=== PATIENT | male | born 1950 | race Caucasian/White ===

== ENCOUNTER 2017-05-27 09:51 | Inpatient (IN) | payer MEDICARE, OTHER ==
[2017-05-27 11:05] LABS: Hematocrit 49 % (42-52); Hemoglobin 14.5 g/dl (14.0-18.0); Mean Corpuscular HGB Conc 30 g/dl (31-36); Mean Corpuscular Hemoglobin 23 pg (27-31); Mean Corpuscular Volume 79 fL (80-94); Mean Platelet Volume 9 um3 (7.4-10.4); Platelet Count 211 10^3/ul (150-450); Red Blood Count 6.23 10^6/ul (4.0-5.4); Red Cell Distribution Width 22 % (10.5-15); White Blood Count 8.7 10^3/ul (3.5-10.8)
[2017-05-27 11:09] LABS: EGFR Non-African American 7.8 (>60)
[2017-05-27 11:26] LABS: INR 1.63 (0.77-1.02)
[2017-05-27] MEDS ORDERED: NS 0.9% 1000 ML* 2,000 ML IV ONE (11:27)
[2017-05-27 11:47] LABS: ABS Basophils 0 10^3/ul (0-0.2); ABS Eosinophils 0.1 10^3/ul (0-0.6); ABS Lymphocytes 0.9 10^3/ul (1.0-4.8); ABS Monocytes 0.8 10^3/ul (0-0.8); ABS Neutrophils 6.9 10^3/ul (1.5-7.7); ABS Nucleated RBC 0.1 10^3/ul; Lymphocyte % 10.5 % (25-47)
--- NOTE | 2017-05-27 11:59 | RAD ---
Indication: End-stage renal disease. Weakness. Comparison: No relevant prior exams available on the [facility] PACS for comparison. Technique: Upright AP 1100 hours Report: Mild rightward rotation. 1.3 cm RIGHT perihilar nodular density may represent a prominent blood vessel on end however this is not definitive. The lungs and pleural spaces are otherwise clear. Negative for pneumothorax. Prominent RIGHT paratracheal soft tissue contour likely in part attributable to RIGHT rotation. Cardiomegaly. Prominent although well defined central pulmonary vasculature. IMPRESSION: 1. Cardiomegaly without compelling evidence for pulmonary edema. 2. Indeterminant 1.3 cm RIGHT perihilar density and RIGHT paratracheal soft tissue contour. In absence of prior exams documenting stability with none available on the [facility] PACS consider CT for further assessment.
[2017-05-27 12:30] LABS: Urine Appearance Clear; Urine Blood Negative (Negative); Urine Color Amber; Urine Ketones Negative (Negative); Urine Protein 2+(100 mg/dL) (Negative); Urine Specific Gravity 1.013 (1.010-1.030); Urine Urobilinogen Positive (Negative)
[2017-05-27] MEDS ORDERED: NS 0.9% 1000 ML* 1,000 ML IV ONE (12:58)
--- NOTE | 2017-05-27 13:16 | RAD ---
INDICATION: Lower extremity pain and edema. Redness. COMPARISON: No relevant prior exams available on the [facility] PACS for comparison. TECHNIQUE: Souza scale, color Doppler, and spectral analysis of the deep veins of the BILATERAL lower extremities. Vessel compression, phasicity, and augmentation assessed. REPORT: The RIGHT common femoral, great saphenous, profunda femoral, femoral, popliteal, peroneal, and posterior tibial veins are patent. Conspicuity at the popliteal and calf veins limited due to soft tissue edema. The LEFT common femoral, great saphenous, profunda femoral, femoral, popliteal, and posterior tibial veins are patent. Potential nonocclusive hyperechoic chronic appearing thrombosis at the more anterior of the LEFT calf peroneal veins. Conspicuity at the popliteal and calf veins limited due to soft tissue edema. IMPRESSION: 1. Assessment from the knees through the the lower legs limited due to soft tissue edema. 2. No evidence for RIGHT lower extremity DVT. 3. Potential nonocclusive chronic appearing thrombus at one of the paired peroneal veins of the LEFT calf.
[2017-05-27] MEDS ORDERED: Sodium Bicarbonate 8.4% IV* 150 MEQ in D5W 1000 ML BAG* 1,000 ML IVPB SCH ×4 (15:00)
--- NOTE | 2017-05-27 15:26 | PN ---
Progress Note - Progress Note Date of Service: 05/27/17 Note: Critical Care Admission Note (H&P) Called by Dr milton in ER regarding a patient who presented for evaluation of progressive weakness and failure to thrive. Patient usually goes to physicians in [facility]. His significant other wanted for him to come here this time as it was a little easier to drive here from where they live and also wanted a second opinion regarding his condition. Patient relates an approximately 11 year history of A Fib and cardiac dysfunction as well as renal dysfunction. He has been managed over the years with Lasix and Metolazone for fluid balance issues. He has had serial echocardiograms but is unaware of the range of his estimated ejection fractions however told that his "heart is as good as it could be". He was formerly on Pradaxa for many years but became anemic and Pradaxa was stopped thinking that he was "bleeding internally". Patient found to be polycythemic in the past year however work-up did not reveal P vera. He has nevertheless been phlebotomized regularly till April 2017 when his blood counts stabilized at a more acceptable level. Over these last 2 months he has been progressively weaker and malaised, eating and drinking poorly, with progressive edema of his legs. In ER on presentation he was noted to be hypoxic requiring O2. He is not on home O2. Denies any recent respiratory illness. Dr Sierra consulted from ER...has seen patient and spoken with his Sausage Stuffer....apparently usual creatinine is in the 4.0's. He related that he has a history of polycythemia but that work up was inconsistent with P vera. In ER received 3 liters IVF. NKDA PMH Flu as child, A Fib, Cardiomyopathy, Polycythemia, Advanced CKD MEDs include: Digoxin, Metoprolol, Lasix, Metolazone, MVI, Vit D, baby ASA, K tabs Soc Hx retired from [employer], EtOH negative, Tobacco negative Fam Hx Sister had renal failure and received renal transplant, multitude of family members with heart disease ROS TB neg, Hepatitis neg, no unusual infections, no astrhma, no hx phlebitis, DVT or PE SBP 96 HR 60 irreg RR 24 SpO2 82 (FM O2) Skin no diaphoresis Sclerae anicteric, EOM intact, pupils equal Oral mucosa somewhat dry with dry sticky saliva, lips a little dusky Neck supple, prominent EJ not no JVD and no HJR Lungs with few basilar crackles, no wheezes, no rhonchi Cor Irreg no rub, no murmur Abd soft, nontender Ext edematous with erythema of forelegs and feet PIV in arms WBC 8.7 Hgb 14.5 Plt 211 INR 1.63 PTT 41.5 7.31/23/51 Lact 4.7 HCO3 15 BUN/Creat 160/7.0 Bili 2.5 BNP 6400 Alb 3.5 Dig 2.7 UA 2(+) prot CXR no PVC, cardiomegally IMP: Suspect longstanding hypoxemia with secondary polycythemia Acute deterioration of renal function with significant azotemia on advanced CKD with suspicion of dehydration/hypovolemia Metabolic acidosis due to combination of advanced renal disease and lactic acidosis Lactic acidosis...suspect due to hypovolemia and ensuing underperfusion Cardiomyopathy...longstanding with A Fib "Toxic" Dig level...as consequence of renal failure Hyperbilirubinemia...suspect hepatic congestion Peripheral edema Mild coagulopathy...??nutritional vs cirrhotic liver from chronic congestion PLAN: Bicarb gtt at 80 ml/hr HF NC...accept SpO2 high 80s ECHO Venous and Arterial Dopplers of legs Ongoing Renal input and follow up Keep HOB raised DVT prophyl with SQ Heparin Renal Diet Nati Andre Discussed with Resp Tx, Nurse, Pharm, Dr Milton, and Dr Sierra Spoke with patient and significant other T>35 min, CCM services rendered
[2017-05-27] MEDS ORDERED: Heparin VIAL(*) 5000 UNITS/ML VIAL (FIVE THOUSAND) SUBCUT SCH (16:00)
[2017-05-27] MEDS ORDERED: Heparin DRIP 25,000 UNITS(*) 25,000 UNITS/500 ML BAG IVPB SCH (16:45)
[2017-05-27] MEDS ORDERED: Heparin VIAL(*) 5000 UNITS/ML VIAL (FIVE THOUSAND) IV SCH (17:00)
[2017-05-27 17:06] LABS: INR 1.63 (0.77-1.02)
[2017-05-27 17:09] LABS: EGFR Non-African American 7.8 (>60)
[2017-05-27 17:32] LABS: ABS Basophils 0.1 10^3/ul (0-0.2); ABS Eosinophils 0.1 10^3/ul (0-0.6); ABS Lymphocytes 0.9 10^3/ul (1.0-4.8); ABS Monocytes 0.8 10^3/ul (0-0.8); ABS Nucleated RBC 0.1 10^3/ul; Eosinophil % 1.1 % (0-6); Hematocrit 45 % (42-52); Mean Corpuscular HGB Conc 29 g/dl (31-36); Mean Corpuscular Hemoglobin 23 pg (27-31); Mean Corpuscular Volume 78 fL (80-94); Mean Platelet Volume 9 um3 (7.4-10.4); Nucleated Red Blood Cells % 0.6; Platelet Count 174 10^3/ul (150-450); Red Blood Count 5.72 10^6/ul (4.0-5.4); Red Cell Distribution Width 23 % (10.5-15); White Blood Count 7.8 10^3/ul (3.5-10.8)
--- NOTE | 2017-05-27 18:11 | RAD ---
Indication: Hyperbilirubinemia. Real-time sonography of the right upper quadrant was performed. The liver measures 15.4 cm in length. It is diffusely increased in echogenicity consistent with parenchymal liver disease. Perihepatic ascites is noted. Small right pleural effusion is noted. The gallbladder is partially contracted with no definite gallstones. No definite pericholecystic fluid is identified. There may be sludge within the gallbladder. Common duct measures up to 5 mm. The right kidney measures 8.6 x 4.6 x 4.5 cm. And atrophic hyperechoic right kidney is noted without hydronephrosis. Pancreas is limited in evaluation with no pancreatic duct dilatation. Aorta and inferior vena cava are unremarkable. IMPRESSION: Ascites adjacent to the liver and small echogenic liver with perihepatic ascites. Atrophic kidney. Sludge is noted in the gallbladder wall.
--- NOTE | 2017-05-27 19:06 | RAD ---
Indication: Respiratory failure, hypoxemia. 6.1 mCi of technetium 99m macroaggregated albumin was injected for the perfusion study. Patient could not tolerate the ventilation study. No definite evidence of segmental or subsegmental perfusion defects are identified. This is likely a low probability scan for pulmonary embolus. IMPRESSION: No evidence of segmental or subsegmental perfusion defects are identified. This is likely a low probability scan for pulmonary embolus although ventilation scan could not be performed.
--- NOTE | 2017-05-27 19:23 | ECHO ---
Patient: ROB VILLATORO [facility] Rec#: [id number] : 1950 Date: 05/27/2017 Age: 67y Height: 167.6 cm / 66.0 in Weight: 83 kg / 182.9 lbs Sex: M BSA: 1.9 Room#: ICU 8 Admit Date#: 05/27/2017 Type: Inpatient Referring: Bienvenido Alamo Reading: Jaelyn Alaniz MD Professional Fighter: Betsey Wasserman RN RDCS Transthoracic Echocardiogram Indication: SOB, cardiomegaly, lower extremity edema BP: 92/65 HR: 55 Rhythm: A-Fib Findings History: SOB and lower extremity edema for several weeks Technical Comments: The study quality is fair. The study was technically limited due to the patient's inability to lay in the left lateral decubitus position. Completed at 1700. Left Ventricle: The left ventricular chamber size is decreased. Mild concentric left ventricular hypertrophy is observed. Global left ventricular wall motion and contractility are within normal limits. The left ventricle appears hyperdynamic. The estimated ejection fraction is greater than 65%. There is septal flattening of the interventricular septum consistent with right ventricular volume or pressure overload. The assessment of diastolic function is non-diagnostic. Left Atrium: The left atrium is moderately dilated. Right Ventricle: The right ventricle is severely dilated. The right ventricular global systolic function is severely reduced. Right Atrium: The right atrium is moderate to severely dilated. Aortic Valve: The aortic valve is trileaflet. The aortic valve leaflets are mildly thickened. There is aortic annular calcification. There is a trace of aortic regurgitation. There is no evidence of aortic stenosis. Mitral Valve: The mitral valve leaflets are mildly thickened. There is mild mitral regurgitation. There is no evidence of mitral stenosis. Tricuspid Valve: The tricuspid valve leaflets are normal. There is moderate tricuspid regurgitation. There is evidence of severe pulmonary hypertension. There is no tricuspid stenosis. Pulmonic Valve: The pulmonic valve appears normal. There is a trace pulmonic regurgitation. There is no pulmonic stenosis. Pericardium: There is no significant pericardial effusion. Aorta: There is no dilatation of the ascending aorta. There is no dilatation of the aortic arch. There is no dilation of the aortic root. Pulmonary Artery: The main pulmonary artery is not well visualized. Venous: The venous system is not well visualized. The inferior vena cava is not visualized. Conclusions Mild concentric left ventricular hypertrophy is observed. There is septal flattening of the interventricular septum consistent with right ventricular volume or pressure overload. The estimated ejection fraction is greater than 65%. The right ventricle is severely dilated. The right ventricular systolic function is severely reduced. The left atrium is moderately dilated. The right atrium is moderate to severely dilated. There is a trace of aortic regurgitation. The aortic valve leaflets are mildly thickened. There is mild mitral regurgitation. There is moderate tricuspid regurgitation. There is evidence of severe pulmonary hypertension: 82 mmHg. No prior echo to compare. Measurements Name Value Normal Range RVIDd (AP) 2D 5 cm (0.9 - 2.6) RVDdMajor (2D) 5.5 cm (2.2 - 4.4) RAd ISD 4CH 6.8 cm (3.4 - 4.9) RA (A4C)W 4.5 cm (2.9 - 4.6) IVSd (2D) 1.1 cm (0.6 - 1) LVPWd (2D) 1.1 cm (0.6 - 1) LVIDd (2D) 3.1 cm (3.6 - 5.4) LVIDs (2D) 1.4 cm - LV FS (2D) 55 % (25 - 45) Aortic Annulus 2.1 cm (1.4 - 2.6) Ao root diameter (2D) 3.2 cm (2.1 - 3.5) Ascending Ao 3.1 cm (2.1 - 3.4) Aortic arch 2.9 cm (1.8 - 3.4) LA dimension (AP) 2D 4.1 cm (2.3 - 3.8) LAd ISD 4CH 6.5 cm (2.9 - 5.3) LA ISD 4CH W 4.2 cm (2.5 - 4.5) Name Value Normal Range LA ESV SP 4CH (A/L) 94 ml - LA ESV SP 2CH (A/L) 70 ml - LA ESV BP (A/L) 82 ml - LA ESV BP (A/L) index 42.4 ml/m2 - LA ESV SP 4CH (MOD) 89 ml - LA ESV SP 2CH (MOD) 67 ml - Name Value Normal Range MV E-wave Vmax 0.5 m/sec - MV deceleration time 240 msec - LV lateral e' Vmax 0.07 m/sec - LV E:e' lateral ratio 7.1 ratio - Name Value Normal Range AV Vmax 1.2 m/sec - AV VTI 18.7 cm - AV peak gradient 6.7 mmHg - AV mean gradient 3.1 mmHg - LVOT Vmax 1 m/sec - LVOT VTI 15.3 cm - LVOT peak gradient 4.2 mmHg - LVOT mean gradient 2.1 mmHg - CHARLI Vmax 0.53 m/sec - Name Value Normal Range TR Vmax 4.3 m/sec - TR peak gradient 74 mmHg - RAP 8 mmHg - RVSP 82 mmHg - Name Value Normal Range PV Vmax 0.48 m/sec -
[2017-05-27] MEDS ORDERED: fentaNYL* 50 MCG/ML 2 ML VIAL (100 MCG VIAL) IV PRN (19:35)
[2017-05-27] MEDS ORDERED: Propofol* 100 ML ONE (21:16)
[2017-05-27] MEDS ORDERED: Propofol* 10 MG/ML 20 ML BTL IV PUSH ONE (21:35)
[2017-05-27] MEDS ORDERED: Etomidate* 2 MG/ML 20 ML VIAL (40 MG) ONE (21:35)
[2017-05-27] MEDS ORDERED: Atropine SYRINGE* 0.1 MG/ML 10 ML SYRINGE (1 MG) ONE (21:41)
--- NOTE | 2017-05-27 22:01 | RAD ---
Indication: Respiratory failure Single frontal view of the chest performed at 2149 hours was reviewed. Comparison is made with previous exam dated May 27, 2017 the same day. Cardiomegaly with widened mediastinum likely due to AP nature of the film. The ET tube is readjusted to be at the level of the aortic arch. Bibasilar atelectasis is noted. IMPRESSION: ET TUBE IS AT THE LEVEL OF THE AORTIC ARCH..
--- NOTE | 2017-05-27 22:38 | PN ---
Progress Note - Progress Note Date of Service: 05/27/17 Note: Paged for persistent hypoxia despite max vapotherm settings - repeat ABG shows worsening hypoxia with with respiratory alkalosis - concern for patient tiring out and developing respiratory arrest. Patient awake and agreeable to intubation. Spoke with Dr. Amaya, expressed concerns that intubation may not help improve his oxygenation but with his hypoxia and fatigue this was the only option and recommended patient be intubated. Dr. Mittal intubated patient with no issues, however unable to maintain patient's oxygen saturations. Called Dr. Amaya to come into the hospital. Patient hypotensive, Bolus 1LNS and levophed started. Patient does not have a designated HCP. HE is estranged from his sister. Unable to reach his cousin. Spoke with lead database administrator conservation of resources commissioner they agreed that the girlfriend is able to make decisions for himself based on unable to reach any family members.
--- NOTE | 2017-05-28 00:29 | PN ---
Progress Note - Progress Note Date of Service: 05/27/17 Note: CCM Procedure Note Procedure performed ~10:30 - 11 PM Central Line Indication: Shock Consent: Emergency, implied....No HCP available Time out performed with Nurse Heparin turned off recently in preparation Examined both groins for Femoral Vein...selected Lt Fem Vein as best visualized and from artery Standard Sterile Prep with Chlorhexidine x2 sterile draping...broad Using Ultrasound guidance vein cannulated and wire passed Tract dilated and Tri-lumen cath passed over wire Blood return x all 3 ports Flushed with saline Sutured x3 Pressure dressing with sand bag applied x 1 hour re persistent oozing from line site No other evident complication
--- NOTE | 2017-05-28 00:36 | PN ---
Progress Note - Progress Note Date of Service: 05/28/17 Note: CCM Procedure Note Arterial Line Indication: hypoxemic respiratory failure Time out performed with nurse at time of central line earlier in evening and did not leave room Examined Femoral Arteries and Radial Arteries bilat....best visualization and palpation afforded on right femoral artery Standard Sterile Prep with Chlorhexidine x2 Sterile drape Tried Ultrasound guidance for 2 punctures sans success Using traditional palpation Femoral Artery cannulated Wire passed and line subsequently passed Arterial tracing identified Sutured x3 Biopatch applied and dressing applied No evident complication incurred
--- NOTE | 2017-05-28 00:44 | PN ---
Progress Note - Progress Note Date of Service: 05/28/17 Note: CCM Progress Note Patient deteriorated with hypoxemia despite HF NC and described as looking "potts " and fatigued leading to intubation Subsequently required initiation of pressors O2 saturation not improving Emergent lines placed.....A line and TLC Discussed with significant other twice...she wants to continue aggressive care Provided her with a thorough explanation of current grave situation where patient in shock and hypoxemic despite all measures Noted perfusion scan does not support presence of PE so will keep heparin off Suspect patient shunting blood somewhere in body as pathophysiology [place] grim
[2017-05-28 01:01] VITALS: BP 26/11
[2017-05-28] MEDS ORDERED: Vasopressin* 100 UNITS in D5W 250 ML BAG* 245 ML IVPB SCH (01:15)
[2017-05-28] MEDS: Propofol* 100 ML IV SCH ×2 (01:51→04:37)
[2017-05-28] MEDS ORDERED: Norepinephrine 16MCG/ML IVPRE* 4,000 MCG/250 ML BAG IV SCH (02:00)
[2017-05-28] MEDS ORDERED: NS 0.9% 250 ML* 246 ML with Norepinephrine VIAL* 4 MG IV SCH ×2 (04:00)
[2017-05-28] MEDS ORDERED: Chlorhexidine MOUTHWASH 0.12%* 15 ML UDC TOPICAL SCH (04:00)
[2017-05-28 05:43] LABS: Hematocrit 51 % (42-52); Hemoglobin 14.3 g/dl (14.0-18.0); Mean Corpuscular HGB Conc 28 g/dl (31-36); Mean Corpuscular Hemoglobin 23 pg (27-31); Mean Corpuscular Volume 82 fL (80-94); Mean Platelet Volume 9 um3 (7.4-10.4); Platelet Count 157 10^3/ul (150-450); Red Blood Count 6.21 10^6/ul (4.0-5.4); Red Cell Distribution Width 23 % (10.5-15); White Blood Count 12.8 10^3/ul (3.5-10.8)
[2017-05-28 05:50] LABS: EGFR Non-African American 8.1 (>60)
[2017-05-28] MEDS ORDERED: Norepinephrine 8 mg in 500 mL NS (Pharmacy Admixed Drip) IV SCH (06:00)
[2017-05-28] MEDS ORDERED: Aspirin Low Dose CHEW TAB* 81 MG PO SCH (09:00)
[2017-05-28] MEDS ORDERED: Morphine INJ* 10 MG/ML 1 ML CARPUJECT IV PRN (09:36)
--- NOTE | 2017-05-28 10:04 | PN ---
Progress Note - Progress Note Date of Service: 05/28/17 Note: CCM Progress Note On ventilator On pressor Sedated with Propofol SBP 100 Ashen color BS bilat Edematous legs Nursing staff have held multiple discussions with family overnight Have had 2 discussions with family this AM Significant other wishes patient's cousin to make decisions regarding care Patient estranged from other family members Cousin understands gravity of situation....seeks move to Comfort Care MOLST completed with cousin DNR+DNI with Commfort Care and no aggressive or invasive interventions to be initiated To stop Propofol and move to Morphine IVP
--- NOTE | 2017-05-28 10:52 | PN ---
Progress Note - Progress Note Date of Service: 05/28/17 Note: CCM Note Patient pulseless, w/o spontaneous respiration, unresponsive, with fixed pupils 10:16 AM 05/28/2017 Family at bedside No autopsy
--- NOTE | 2017-05-28 11:19 | PN ---
Progress Note - Progress Note Date of Service: 05/28/17 Note: Critical Care /discharge Summary Patient presented to the hospital with the following background history: Called by Dr Alamo in ER regarding a patient who presented for evaluation of progressive weakness and failure to thrive. Patient usually goes to physicians in [facility]. His significant other wanted for him to come here this time as it was a little easier to drive here from where they live and also wanted a second opinion regarding his condition. Patient relates an approximately 11 year history of A Fib and cardiac dysfunction as well as renal dysfunction. He has been managed over the years with Lasix and Metolazone for fluid balance issues. He has had serial echocardiograms but is unaware of the range of his estimated ejection fractions however told that his "heart is as good as it could be". He was formerly on Pradaxa for many years but became anemic and Pradaxa was stopped thinking that he was "bleeding internally". Patient found to be polycythemic in the past year however work-up did not reveal P vera. He has nevertheless been phlebotomized regularly till April 2017 when his blood counts stabilized at a more acceptable level. Over these last 2 months he has been progressively weaker and malaised, eating and drinking poorly, with progressive edema of his legs. In ER on presentation he was noted to be hypoxic requiring O2. He is not on home O2. Denies any recent respiratory illness. Dr Sierra consulted from ER...has seen patient and spoken with his Adjunct Latin Professor....apparently usual creatinine is in the 4.0's. He related that he has a history of polycythemia but that work up was inconsistent with P vera. In ER received 3 liters IVF. NKDA PMH Flu as child, A Fib, Cardiomyopathy, Polycythemia, Advanced CKD MEDs include: Digoxin, Metoprolol, Lasix, Metolazone, MVI, Vit D, baby ASA, K tabs Soc Hx retired from [employer], EtOH negative, Tobacco negative Fam Hx Sister had renal failure and received renal transplant, multitude of family members with heart disease ROS TB neg, Hepatitis neg, no unusual infections, no asthma, no hx phlebitis, DVT or PE Hospital Course: Patient was admitted to the ICU. He was treated initially with high flow O2 cannula with SpO2 88-90. Further history from his significant other revealed that he had previously been provided with oxygen for use at home but did not utilize so has not been on oxygen. Evaluative testing included an ECHO revealing a dilated and dysfunctional RV which patient stated had been longstanding issue. A venous duplex of the legs revealed a possible small chronic appearing DVT in LLE. A Nuclear lung perfusion scan was low probability for pulmonary embolic disease...therefore a Heparin gtt that was originally initiated was discontinued. He also had an abdominal sonogram to evaluate his liver.A Renal Consult was obtained from Dr Sierra who spoke with patient's usual Adjunct Latin Professor. He was receiving IV fluids suspecting hypovolemia as cause of his decline in renal indices. Late evening 05/27 his respiratory status declined and after elective intubation his hemodynamic status declined with development of circulatory shock. I cam in and emergently placed a central line and an arterial line as part of an aggressive care plan. Oxygenation never improved despite mechanical ventilatory support. Extensive discussion with significant other and cousin led to a move to establishment of a DNR status and withdrawal of aggressive care and move to comfort oriented care alone. Patient shortly after at 10:16 AM 05/28/2017 with family at bedside...no autopsy Discharge/ Diagnoses: Acute Hypoxemic Respiratory Failure Chronic Hypoxemic Respiratory Failure Circulatory Shock Right Heart Failure Lactic Acidosis Hypovolemia Acute renal Failure Advanced Chronic Kidney Disease Chronic Persistent Atrial Fibrillation "Toxic" Dig level Hyperbilirubinemia Peripheral edema Mild coagulopathy Chronic Polycythemia History of GI bleed Chronic Distal DVT left lower extremity
--- NOTE | 2017-05-28 21:48 | CONS ---
NEPHROLOGY CONSULTATION: DATE OF CONSULT: DATE OF DICTATION: 05/28/17 HISTORY OF PRESENT ILLNESS: I had seen Mr. Rahman yesterday in the emergency room, but did not dictate my notes as I wanted to talk to his hospital carrier in [place]. I, later in the afternoon, did talk to his hospital carrier and passed all my information to Dr. Amaya. Mr. Rahman is a 67-year-old gentleman with a long history of progressive worsening of renal function with a baseline creatinine of about 4 in the fall of 2016. He had a history of atrial fibrillation, which he related it to me in the emergency room, but I found out later that he actually had a significantly depressed ejection fraction, although his hospital carrier does not have an exact number for me for an ejection fraction. He apparently had been having a few days of progressive weakness, lethargy. He had been sleeping on the floor. He was progressively short of breath. He had been having worsening edema to his legs. MEDICATIONS: Included: 1. Metolazone. 2. Lasix. 3. Digoxin. 4. Metoprolol. He was on low dose aspirin and he had potassium supplementation. SOCIAL HISTORY: He was living with his significant other. He did not use tobacco. REVIEW OF SYSTEMS: Significant that he had no swallowing difficulties, no heat or cold tolerance. He had marked discoloration of his legs, which went back approximately 6 months. PHYSICAL EXAMINATION: At the time that I saw him in he emergency room, his blood pressure was 105/64 with a pulse of 51, respirations were 16. He was anicteric. His extraocular muscles were intact. He had very dry mucous membranes. There was no jugular venous distension. There was positive skin tenting. The chest revealed some scattered rhonchi. The heart revealed a regular rhythm. It was bradycardic. I could not hear any murmurs. The abdomen was soft and nontender. He had marked erythematous discoloration in a stocking fashion of his legs almost up to his knees. It looked exactly like cellulitis, I thought it was cellulitis until I got the history that it had been that way for 6 months. I suggested to Dr. Amaya that this would possibly be the rubor state of severe ischemia. He had been having pain to his legs. LABORATORY DATA: At the time of admission, his white count was 8.7, hemoglobin of 14.5. I got the history from his hospital carrier in [place] that he had been running a very low hemoglobin in the 8 or 9 range for a number of years and then all of the sudden last year, his hemoglobin went up to 18. He thought he might have polycythemia. There was a hematology consultation, which ruled that out. At the time of admission, his sodium was 135, potassium 4.6, total CO2 of 15, chloride 99, BUN 160, creatinine 7.04, anion gap 21. IMPRESSION: The impression at that time was: 1. [id number] renal insufficiency ,probably on the basis of significant dehydration. 2. Increased anion gap metabolic acidosis secondary to his worsening renal failure. 3. Marked dehydration. 4. History of atrial fibrillation. 5. Possible ischemia to his legs. I recommended in the emergency room that he be rehydrated and reevaluated to see what his acid base status and renal function were doing. I discussed the case at length with Dr. Amaya. [id number]/[facility] #: [id number] LAKESHIA
--- NOTE | 2017-05-29 16:11 | ED ---
Kane Franz Angela, scribed for Bienvenido Alamo MD on 05/27/17 at 1015 . Complex/Multi-Sys Presentation - HPI Summary HPI Summary: This pt is a 67 y/o male presenting to [facility] via EMS for generalized weakness for the last month. EMS reports pt has had difficulty getting around his house. Pt has had diarrhea in the past 3-4 days. EMS notes the pt has had worsening weakness and decreased appetite for the last couple of days. Today pt was found on the floor by EMS. Pt has been sleeping on the floor routinely as it is better for his back but today he was not able to get up on his own. Pt is additionally SOB and is saturating on room air in the 80%s, per EMS. He also reports lower extremity edema and redness. Pt denies ever smoking. PMHx: chronic renal disease, atrial fibrillation, HTN, polycythemia. Pt is on aspirin, Lasix, Metoprolol, Digoxin. - History Of Current Complaint Hx Obtained From: Patient, EMS Onset/Duration: Lasting Weeks, Still Present Timing: Weeks Severity Currently: Severe Aggravating Factor(s): nothing Alleviating Factor(s): nothing Associated Signs And Symptoms: Positive: Weakness - generalized, SOB, Cough, Edema, Diarrhea - Allergies/Home Medications Allergies/Adverse Reactions: Allergies Allergy/AdvReac Type Severity Reaction Status Date / Time No Known Allergies Allergy Verified 05/27/17 10:46 Home Medications: Home Medications Aspirin EC Low Dose* [Ecotrin EC Low Dose 81 MG*] 81 mg PO DAILY 05/27/17 [ History Confirmed 05/27/17] Colchicine* [Colcrys*] 0.6 mg PO DAILY PRN 05/27/17 [History Confirmed 05/27/17] Digoxin TAB* [Lanoxin TAB*] 0.125 mg PO .MON-Thu05/27/17 [History Confirmed ] Furosemide TAB* [Lasix TAB*] 80 mg PO DAILY 05/27/17 [History Confirmed 05/27/17 ] Metolazone TAB* [Zaroxolyn TAB*] 5 mg PO DAILY 05/27/17 [History Confirmed 05/27] Metoprolol Succinate XL TAB* [Toprol XL TAB*] 250 mg PO DAILY 05/27/17 [History Confirmed 05/27/17] Multivitamins/Minerals TAB* [Theragran/minerals TAB*] 1 tab PO DAILY 05/27/17 [ History Confirmed 05/27/17] Potassium Chlor TAB* [Klor Con ER TAB*] 10 meq PO DAILY WITH MEAL 05/27/17 [ History Confirmed 05/27/17] PMH/Surg Hx/FS Hx/Imm Hx Endocrine/Hematology History: Reports: Other Endocrine/Hematological Disorders - polycythemia Cardiovascular History: Reports: Hx Atrial Fibrillation, Hx Hypertension History: Reports: Hx Renal Disease - stage 4 Infectious Disease History: Denies: Traveled Outside the [place] in Last 30 Days - Family History Known Family History: Positive: Cardiac Disease Family History: Sister: renal failure - Social History Alcohol Use: None Substance Use Type: Reports: None Smoking Status (MU): Never Smoked Tobacco Review of Systems Constitutional: Other - decreased appetite Negative: Fever Positive: Shortness Of Breath, Cough Positive: Diarrhea Positive: Edema Skin: Other - redness in LE Positive: Weakness All Other Systems Reviewed And Are Negative: Yes Physical Exam - Summary Physical Exam Summary: VITAL SIGNS: Reviewed. GENERAL: Patient is an elderly male with no acute distress who is lying comfortable in the stretcher. Pt has some weakness. HEAD AND FACE: No signs of trauma. No ecchymosis, hematomas or skull depressions. No sinus tenderness. EYES: PERRLA, EOMI x 2, No injected conjunctiva, no nystagmus. EARS: Hearing grossly intact. Ear canals and tympanic membranes are within normal limits. MOUTH: Oropharynx within normal limits. NECK: Supple, trachea is midline, no adenopathy, no JVD, no carotid bruit, no c- spine tenderness, neck with full ROM. CHEST: Symmetric, no tenderness at palpation LUNGS: Some crackles in the bases of the lungs. CVS: Regular rate and rhythm, S1 and S2 present, no murmurs or gallops appreciated. ABDOMEN: Soft, non-tender. No signs of distention. No rebound no guarding, and no masses palpated. Bowel sounds are normal. EXTREMITIES: FROM in all major joints, no cyanosis or clubbing. Bilateral lower extremity edema. Left leg has purple discoloration in the toes. NEURO: Alert and oriented x 3. No acute neurological deficits. Speech is normal and follows commands. SKIN: Dry and warm GCS: 15 Triage Information Reviewed: Yes Vital Signs Reviewed: Yes Diagnostics - Laboratory Result Diagrams: 02/14/18 16:38 05/27/17 16:38 Lab Statement: Any lab studies that have been ordered have been reviewed, and results considered in the medical decision making process. - Radiology Chest XR Xray Interpretation: Positive (See Comments) - IMPRESSION: 1. Cardiomegaly without compelling evidence for pulmonary edema. 2. Indeterminant 1.3 cm RIGHT T perihilar density and RIGHT paratrachael soft tissue contour. In absence of prior exams documneting stability with none available on the [facility] [place] for further assessment. Dr. Alamo has reviewed this radiology report. Radiology Interpretation Completed By: Radiologist - EKG 10:15 Cardiac Rate: Bradycardia EKG Rhythm: Atrial Fibrillation - at 59 bpm EKG Interpretation: Right bundle branch block. - Additional Comments Diagnostic Additional Comments: Venous Doppler Study, Bilateral, as read by radiologist: IMPRESSION: 1. Assessment from knees through the lower legs limited due to soft tissue edema. 2. No evidence for RIGHT lower extremity DVT. 3. Potential nonocclusive chronic appearing thrombus at one of the paired peroneal veins of the LEFT calf. Dr. Alamo has reviewed this radiology report. Complex Multi-Symp Course/Dx Assessment/Plan: This pt is a 67 y/o male presenting to [facility] via EMS for generalized weakness for the last month. EMS reports pt has had difficulty getting around his house. Pt has had diarrhea in the past 3-4 days. EMS notes the pt has had worsening weakness and decreased appetite for the last couple of days. Today pt was found on the floor by EMS. Pt has been sleeping on the floor routinely as it is better for his back but today he was not able to get up on his own. Pt is additionally SOB and is saturating on room air in the 80%s , per EMS. He also reports lower extremity edema and redness. Test results shows CBC is within normal limits, INR of 1.63, APTT of 41.5, ABG shows pH of 7.31, pCO2 of 23, pO2 of 51, O2 saturation is 85.6, he has BUN of 160, creatinine of 7.04, lactic acid of 4.7, BNP 6401. Urinalysis is negative for UTI. Digoxin of 2.7. Influenza A and B is negative. Chest XR: 1. Cardiomegaly without compelling evidence for pulmonary edema. 2. Indeterminant 1.3 cm RIGHT T perihilar density and RIGHT paratrachael soft tissue contour. In absence of prior exams documenting stability with none available on the [facility] [place] for further assessment. US of bilateral lower extremity: 1. Assessment from knees through the lower legs limited due to soft tissue edema. 2. No evidence for RIGHT lower extremity DVT. 3. Potential nonocclusive chronic appearing thrombus at one of the paired peroneal veins of the LEFT calf. In the ED course the pt Is hypoxic and hypotensive. He is intravascular depleted and extravascular overloaded. Since the is hypotensive I have no choice than to give the pt IV fluids and he was placed in a non rebreather mask. The pt seems to have an acute on chronic renal failure and would benefit from dialysis. Therefore I discussed the case with Dr. Sierra who came and assessed the pt. Dr. Sierra agrees with dialysis and recommends to continue IV fluids. I discussed the case with Dr. Amaya, [employer], who has agreed to admit the pt to the ICU. The pt is critical and unstable. - Diagnoses Provider Diagnoses: Acute on chronic renal failure, Severe dehydration, Bilateral lower extremity edema, possible arterial insufficiency - Physician Notifications Discussed Care Of Patient With: Matthew Amaya Time Discussed With Above Provider: 11:31 Instructed by Provider To: Other - I discussed pt care with Dr. Amaya, [employer], who has accepted the pt for admission. [11:38] I spoke with Dr. Sierra, test skein winder, who will come see the pt in the ED. - Critical Care Time Critical Care Time: 75-104 min Discharge - Discharge Plan Condition: Stable Disposition: ADMITTED TO [facility] documentation as recorded by the Kane damon Angela accurately reflects the service I personally performed and the decisions made by me, Bienvenido Alamo MD.
== END 2017-05-28 10:16 | disposition expired | DRG 208 ==
LOC: ED 09:51 → ICU 13:26
PROVIDERS: ADMIT Internal Medicine Critical Care Medicine; ATTEND Internal Medicine Critical Care Medicine
PROC: 02HV33Z Insertion of Infusion Device into Superior Vena Cava, Percutaneous Approach (ICD-10-PCS; principal; 2017-05-27)
PROC: 5A1935Z Respiratory Ventilation, Less than 24 Consecutive Hours (ICD-10-PCS; 2017-05-27)
PROC: 0BH17EZ Insertion of Endotracheal Airway into Trachea, Via Natural or Artificial Opening (ICD-10-PCS; 2017-05-27)
PROC: 04HK33Z Insertion of Infusion Device into Right Femoral Artery, Percutaneous Approach (ICD-10-PCS; 2017-05-28)
DX: J96.21 Acute and chronic respiratory failure with hypoxia (principal); R57.8 Other shock; N17.9 Acute kidney failure, unspecified; E87.2 Acidosis; D68.9 Coagulation defect, unspecified; I27.82 Chronic pulmonary embolism; I42.9 Cardiomyopathy, unspecified; N18.4 Chronic kidney disease, stage 4 (severe); I82.5Z2 Chronic embolism and thrombosis of unspecified deep veins of left distal lower extremity; I48.1 Persistent atrial fibrillation; Z66 Do not resuscitate; D75.1 Secondary polycythemia; E86.0 Dehydration; Z51.5 Encounter for palliative care; I12.9 Hypertensive chronic kidney disease with stage 1 through stage 4 chronic kidney disease, or unspecified chronic kidney disease; Z82.49 Family history of ischemic heart disease and other diseases of the circulatory system; R62.7 Adult failure to thrive; Z84.1 Family history of disorders of kidney and ureter; I48.2 Chronic atrial fibrillation; I50.810 Right heart failure, unspecified; E80.6 Other disorders of bilirubin metabolism; E86.1 Hypovolemia
CPT/HCPCS: 36415; 36600; 71045; 71046; 76705; 78582; 80048; 80053; 80162; 81003; 81015; 82550; 82553; 82565; 82803; 83605; 83735; 83880; 84100; 84484; 84520; 85025; 85027; 85060; 85610; 85730; 86140; 87086; 87502; 87641; 93005; 93306; 93970; 94002; 94003; 99285; A9270-GY; A9540; A9558; J0461; J1644; J2270; J2704; J3010; J7060